=== PATIENT | male | born 1945 | race Caucasian/White ===

== ENCOUNTER 2024-04-19 10:56 | Inpatient (IN) ==
--- NOTE | 2024-04-19 11:33 | Emergency Department Note ---
Impression & Plan Chest pain, Dizziness ED Provider Note Provider: Miguelangel Martines MD DATE OF SERVICE: 04/19/2024 CHIEF COMPLAINT: Exertional chest pain and dizziness HISTORY OF PRESENT ILLNESS: Patient is a 79-year-old gentleman history of CKD, arthritis, and prostate issues presenting here today with his daughter. Visiting and came out to help with some construction/renovation work they are doing and got here approximately 5 days ago from [facility]. States about 2 months ago when there is having some stamina issues and occasional a bit of shoulder and chest discomfort. [facility] he had a nuclear stress test completed there that was abnormal but there were insurance issues with getting approval for cardiac catheterization so this has not been completed. [facility] has had ongoing issues with exertional chest discomfort and discomfort in his shoulders. States he gets very winded and short of breath easily. Little bit lightheaded at times but no fainting or trauma. No significant focal numbness or weakness or speech issues. Did travel and is a bit of swelling and varicose veins to his legs and a bit of a small lump in the upper inner right lower leg just below the knee. No chest pain now but again it is more exertional and dizziness is mainly when he stands up and moves around. Is unable complete significant help with the renovations and daughter finally convinced him to come here for evaluation today. Does not have a local doctor. Takes a baby aspirin daily. Is finishing a several week course of doxycycline for an eye infection by his report. No significant cardiac history otherwise related. Flew here from [facility]. Denies URI symptoms or cough or fever. Has had some blood pressure medicine changes recently. PAST MEDICAL HISTORY: As noted above MEDICATIONS: Reviewed home medications SOCIAL HISTORY: Very distant former smoker, PHYSICAL EXAM: GENERAL: alert and oriented in no acute distress on stretcher, slightly hard of hearing Head: normocephalic and atraumatic EYES: No injection, discharge or icterus. EOMI. NECK: Trachea midline. ENT: Mucous membranes pink and moist. LUNGS: Airway patent. No retractions. Breath sounds clear with good air entry bilaterally. HEART: Regular rate and rhythm. No chest wall tenderness ABDOMEN: Soft and non-tender, without guarding or rebound. SKIN: Acyanotic, warm, dry, without rashes EXTREMITIES: Without obvious deformity with significant bilateral varicose veins and 1+ bilateral swelling. A few scattered abrasions across the legs without significant erythema. Small about centimeter lump in the medial proximal right upper lower legnot significantly fluctuant NEUROLOGICAL: No focal deficits moving all extremities. No aphasia. No facial droop or slurred speech. Ambulatory. EK bpm sinus bradycardia. No PVC or PAC. No acute ST segment elevation or depression with QTc 427. CONTINUOUS CARDIAC MONITORING: was ordered and showed a heart rate of 40s to 50s bpm in sinus bradycardia Patient's laboratory studies and imaging reviewed. Differential includes Cardiac ischemia, aortic dissection, pulmonary embolism, pneumothorax, pneumonia, pericarditis, myocarditis, esophageal rupture, GERD, cholecystitis, pancreatitis, musculoskeletal, as well as other pathologies. IMPRESSION/MEDICAL DECISION MAKING: Obvious concerns given what sounds like exertional symptoms and chest and shoulder discomfort with a recent abnormal stress test this could be cardiac in nature. No active pain now. EKG and troponin was completed. Ultrasound lower legs exclude DVT given some swelling and varicosities here as well as his travel history was completed. Basic labs were sent. Will complete a CT of the head but lower suspicion this represents acute intracranial bleed or CVA as it seems exertional rather than consistent. Not really expanding significant infectious symptoms and afebrile. Will complete respiratory viral panel but lower suspicion for sepsis or meningitis at this time. Blood work here today without significant anemia. Slight leukopenia 4.7. Normal platelet count. CT of the head reassuring per radiology without findings of mass or bleed or obvious CT infarct. Blood work here shows CKD creatinine 2.4 without other severe electrolyte abnormality. No evidence of hepatitis or thyroid dysfunction. Troponin returns normal today. Negative respiratory viral panel. Chest x-ray without findings of pneumonia pneumothorax or significant pulmonary edema/effusion. Cardiomegaly is noted by radiology report. Ultrasound of the lower extremity shows Did receive a full dose of aspirin here. Discussed with the patient and daughter given the reports of his dyspnea on exertion and exertional chest discomfort with abnormal stress test reported do recommend that we bring the patient in for further cardiac evaluation. Hospitalist team was contacted. Discussed with cardiology. His renal dysfunction is made cardiac catheterization questionable but given his significant symptoms will be evaluated by the hospitalist team and import/export specialist for further care. No active chest pain at this time. DIAGNOSIS: Exertional dizziness and chest pain DISPOSITION: Hospitalist will evaluate Patient was agreeable with this plan. Past Med/Surg History Problem List (Updated 04/19/24 @ 15:57 by Miguelangel Martines M.D.) Acute kidney injury superimposed on CKD Hypotension Chest pain (Acute) Bradycardia Dizziness (Acute) Medical History (Updated 04/19/24 @ 15:57 by Miguelangel Martines M.D.) Rheumatoid arthritis Hyperlipidemia HTN (hypertension) CKD (chronic kidney disease) Social History Smoking Status: Former smoker Feels Safe at Home: Yes Allergies Allergies Allergy/AdvReac Type Severity Reaction Status Date / Time No Known Allergies Allergy Unverified 04/19/24 12:54 Home Meds Home Medications Medication Instructions Recorded Confirmed aspirin 81 mg tablet 81 mg PO HS 04/19/24 04/19/24 doxycycline hyclate 100 mg tablet 100 mg PO HS 04/19/24 04/19/24 duloxetine 30 mg capsule,delayed 90 mg PO DAILY 04/19/24 04/19/24 release finasteride 5 mg tablet 5 mg PO DAILY 04/19/24 04/19/24 folic acid 1 mg tablet 1 mg PO DAILY 04/19/24 04/19/24 losartan 50 mg tablet 50 mg PO HS 04/19/24 04/19/24 methotrexate sodium 2.5 mg tablet 15 mg PO WK 04/19/24 04/19/24 metoprolol succinate 25 mg 25 mg PO HS 04/19/24 04/19/24 tablet,extended release 24 hr rosuvastatin 5 mg tablet 5 mg PO DAILY 04/19/24 04/19/24 tamsulosin 0.4 mg capsule 0.4 mg PO HS 04/19/24 04/19/24 Results & Data (ED) Vital Signs Vital Signs - 24 hr 04/19/24 10:57 04/19/24 10:59 04/19/24 11:42 Temperature 36.6 C Temperature Source Temporal Artery Scan Pulse Rate 59 L 50 L Pulse Rate [Apical] 48 L Pulse Rhythm Pulse Rhythm [Apical] Regular Pulse Strength [Apical] Normal Respiratory Rate 18 16 Respiratory Effort / Characteristics Non-Labored Spontaneous Non-Labored Respiratory Depth Normal Normal Respiratory Pattern Regular Blood Pressure 94/60 L Blood Pressure [Left Arm] 103/64 Blood Pressure Mean 71 Blood Pressure Mean [Left Arm] 77 Blood Pressure Position [Left Arm] Lying Pulse Oximetry 98 99 Oxygen Delivery Method Room Air Room Air Sepsis Recent Fever Within 48 Hours No Sepsis New/Unexplained Change in Mental Status No Sepsis Action Taken by Nursing No Action Required 04/19/24 11:46 04/19/24 12:57 04/19/24 14:00 Temperature Temperature Source Pulse Rate 56 L Pulse Rate [Apical] 48 L 49 L Pulse Rhythm Regular Pulse Rhythm [Apical] Regular Regular Pulse Strength [Apical] Normal Normal Respiratory Rate 18 18 18 Respiratory Effort / Characteristics Non-Labored Spontaneous Non-Labored Spontaneous Respiratory Depth Normal Normal Respiratory Pattern Regular Regular Blood Pressure Blood Pressure [Left Arm] 122/72 Blood Pressure Mean Blood Pressure Mean [Left Arm] 88 Blood Pressure Position [Left Arm] Pulse Oximetry 99 99 Oxygen Delivery Method Room Air Room Air Sepsis Recent Fever Within 48 Hours Sepsis New/Unexplained Change in Mental Status Sepsis Action Taken by Nursing Laboratory Data 04/19/24 11:56 04/19/24 11:56 Lab Results 04/19/24 Range/Units 11:56 WBC 4.78 L (4.8-10.8) K/ul RBC 4.41 L (4.70-6.10) M/uL Hgb 13.5 L (14.0-18.0) g/dl Hct 40.3 L (42.0-52.0) % MCV 91.4 (80.0-100.0) fL MCH 30.6 (25.0-34.0) pg MCHC 33.5 (32.0-36.0) g/dL RDW Std Deviation 47.2 H (36.4-46.3) fL RDW Coeff of Sepideh 14.1 (11.5-14.5) % Plt Count 170 (130-400) K/uL MPV 10.1 (9.4-12.4) fL Immature Gran % (Auto) 0.4 % Neut % (Auto) 69.4 % Lymph % (Auto) 19.2 % [place] % (Auto) 7.9 % Eos % (Auto) 2.3 % Baso % (Auto) 0.8 % Neut # (Auto) 3.31 (1.40-6.50) K/uL Lymph # (Auto) 0.92 L (1.20-3.40) K/uL Sanborn # (Auto) 0.38 (0.11-0.59) K/uL Eos # (Auto) 0.11 (0.00-0.50) K/uL Baso # (Auto) 0.04 (0.00-0.20) K/uL Immature Gran # (Auto) 0.02 (0.01-0.20) K/uL PT 10.8 (9.0-12.0) Seconds INR 1.0 (0.9-1.1) Sodium 139 (136-145) mmol/L Potassium 4.3 (3.5-5.1) mmol/L Chloride 110 H (98-107) mmol/L Carbon Dioxide 22 (21-32) mmol/L Anion Gap 7 (3-11) BUN 46 H (6-23) mg/dl Creatinine 2.42 H (0.6-1.4) mg/dl Est Cr Clr Drug Dosing 30.2 ml/min Est GFR ( Amer) 28.8 ml/min Est GFR (Non-Af Amer) 24.8 ml/min BUN/Creatinine Ratio 19.0 (10-20) Glucose 77 (70-99(Fasting)) mg/dl Calcium 9.5 (8.6-10.3) mg/dl Magnesium 2.3 (1.7-2.4) mg/dl Total Bilirubin 1.1 H (0.2-1.0) mg/dl AST 19 (13-39) U/L ALT 10 (7-52) U/L Alkaline Phosphatase 61 (34-104) U/L Troponin I High Sens 2.7 (0-20) pg/ml Total Protein 6.7 (6.0-8.3) gm/dl Albumin 4.3 (3.4-5.0) gm/dl Globulin 2.4 L (2.5-4.0) gm/dl Albumin/Globulin Ratio 1.8 (0.9-2) TSH 2.053 (0.300-4.500) uIu/ml Administered Medications Lactated Ringer's (Lr) 1,000 mls @ 100 mls/hr IV .Q10H MAXWELL Stop: 04/20/24 00:44 Last Admin: 04/19/24 14:46 Dose: 100 mls/hr Documented By: TRISTIN Discontinued Medications Aspirin (Aspirin 81 Mg Chew) 324 mg PO NOW STA Stop: 04/19/24 11:28 Last Admin: 04/19/24 11:48 Dose: 324 mg Documented By: TRISTIN Imaging Data Radiologist's Impression: Chest X-Ray 04/19/24 11:27 SINGLE VIEW CHEST CLINICAL HISTORY: Atypical chest pain. FINDINGS: 2 AP, portable, upright chest radiographs are obtained. No prior studies are available for comparison at the time of dictation. The heart is enlarged noting atherosclerotic calcification of the thoracic aorta. The pulmonary vasculature is noncongested. There is bibasilar scarring/atelectasis. No airspace consolidation or large pleural effusion is identified. No pneumothorax is seen. The skeletal structures are osteopenic. The bony thorax is grossly intact. IMPRESSION: Cardiomegaly with no acute cardiopulmonary abnormality identified. ACT 112: Negative or not required by law. Electronically signed by: Momo Sherman M.D. 04/19/2024 12:02 PM Venous Doppler Study 04/19/24 11:27 ULTRASOUND BILATERAL LOWER EXTREMITY VENOUS CLINICAL HISTORY: Lower extremity edema. Recent travel. COMPARISON STUDY: No prior TECHNIQUE: Real-time, grayscale, and color Doppler sonography of the deep veins of the right and left lower extremity was performed from the inguinal crease to the calf. Compression and augmentation were utilized. FINDINGS: There is no sonographic evidence of deep venous thrombosis identified in the right or left lower extremity. The common femoral, superficial femoral, and popliteal veins are patent and normally compressible bilaterally. The greater saphenous vein and the profunda femoris vein at the junction with the common femoral vein are clear in both legs. The visualized calf veins are patent bilaterally. IMPRESSION: There is no sonographic evidence of deep venous thrombosis identified in the right or left lower extremity. ACT 112: Negative or not required by law. Electronically signed by: Momo Sherman M.D. 04/19/2024 1:[address] 04/19/24 11:[address] DOSE: 703.85 mGy.cm HISTORY: dizziness TECHNIQUE: Multiaxial CT images of the head were performed without the use of intravenous contrast. Automated exposure control was utilized for this study. A dose lowering technique was utilized adhering to the principles of ALARA. Comparison: None. Findings: Mild mucosal thickening within the right maxillary sinus. The remaining paranasal sinuses and mastoid air cells are clear. The calvarium and skull base are intact. There is no mass, hematoma, midline shift, acute infarct. White matter hypodensity is nonspecific but suggestive of microvascular ischemic change. The ventricles and sulci demonstrate mild age-related involutional changes. Impression: No acute intracranial abnormality. Atrophy and microvascular ischemic changes. ACT 112: Negative or not required by law. Electronically signed by: Jefferson Rogers M.D. 04/19/2024 12:26 PM Discharge Plan Visit Data Chief Complaint: Vertigo Stated Complaint: VERTIGO, SOB, UPPER BODY PAIN, FATIGUE ED Provider: Miguelangel Martines Discharge Problem: Chest pain, Dizziness Patient Disposition: Being Evaluated by Hospitalist
[2024-04-19] MEDS: ASPIRIN 81 MG CHEW PO STA (11:48)
--- NOTE | 2024-04-19 12:03 | XRay Report ---
SINGLE VIEW CHEST CLINICAL HISTORY: Atypical chest pain. FINDINGS: 2 AP, portable, upright chest radiographs are obtained. No prior studies are available for comparison at the time of dictation. The heart is enlarged noting atherosclerotic calcification of th e thoracic aorta. The pulmonary vasculature is noncongested. There is bibasilar scarring/atelectasis. No airspace consolidation or large pleural effusion is identified. No pneumothorax is seen. The skel etal structures are osteopenic. The bony thorax is grossly intact. IMPRESSION: Cardiomegaly with no acute cardiopulmonary abnormality identified. ACT 112: Negative or not required by law. Electronically signed by: Momo Sherman M.D. 04/19/2024 12:02 PM
--- NOTE | 2024-04-19 12:27 | CT Scan Report ---
HEAD CT NONCONTRAST CT DOSE: 703.85 mGy.cm HISTORY: dizziness TECHNIQUE: Multiaxial CT images of the head were performed without the use of intravenous contrast. A utomated exposure control was utilized for this study. A dose lowering technique was utilized adheri ng to the principles of ALARA. Comparison: None. Findings: Mild mucosal thickening within the right maxillary sinus. The remaining paranasal sinuses a nd mastoid air cells are clear. The calvarium and skull base are intact. There is no mass, hematoma, midline shift, acute infarct. White matter hypodensity is nonspecific but suggestive of microvascular ischemic change. The ventricles and sulci demonstrate mild age-related involutional changes. Impression: No acute intracranial abnormality. Atrophy and microvascular ischemic changes. ACT 112: Negative or not required by law. Electronically signed by: Jefferson Rogers M.D. 04/19/2024 12:26 PM
[2024-04-19 12:29] LABS: Basophils # (auto) 0.04 K/uL (0.00-0.20); Basophils % (auto) 0.8 %; Eosinophils # (auto) 0.11 K/uL (0.00-0.50); Eosinophils % (auto) 2.3 %; Hematocrit (blood only) 40.3 % (42.0-52.0); Hemoglobin 13.5 g/dl (14.0-18.0); Immature Granulocytes # (auto) 0.02 K/uL (0.01-0.20); Immature Granulocytes % (auto) 0.4 %; Lymphocytes # (auto) 0.92 K/uL (1.20-3.40); Lymphocytes % (auto) 19.2 %; Mean Corpuscular Hemoglobin 30.6 pg (25.0-34.0); Mean Corpuscular Hgb Conc 33.5 g/dL (32.0-36.0); Mean Corpuscular Volume 91.4 fL (80.0-100.0); Mean Platelet Volume 10.1 fL (9.4-12.4); Monocytes # (auto) 0.38 K/uL (0.11-0.59); Monocytes % (auto) 7.9 %; Neutrophils # (auto) 3.31 K/uL (1.40-6.50); Neutrophils % (auto) 69.4 %; Platelet Count 170 K/uL (130-400); RDW Coefficient of Variation 14.1 % (11.5-14.5); RDW Standard Deviation 47.2 fL (36.4-46.3); Red Blood Count 4.41 M/uL (4.70-6.10); White Blood Count 4.78 K/ul (4.8-10.8)
[2024-04-19 12:40] LABS: Albumin Globulin Ratio 1.8 (0.9-2); Albumin Level 4.3 gm/dl (3.4-5.0); Bilirubin,Total 1.1 mg/dl (0.2-1.0); Calcium 9.5 mg/dl (8.6-10.3); Creatinine Clr Calc Pharmacy 30.2 ml/min; Est GFR (African American) 28.8 ml/min; Est GFR (Non-African American) 24.8 ml/min; Globulin 2.4 gm/dl (2.5-4.0); Magnesium 2.3 mg/dl (1.7-2.4); Potassium 4.3 mmol/L (3.5-5.1); Total Protein 6.7 gm/dl (6.0-8.3)
[2024-04-19 12:46] LABS: Adenovirus PCR Not Detected (NotDetected); Bordetella parapertussis PCR Not Detected (NotDetected); Bordetella pertussis PCR Not Detected (NotDetected); Chlamydia pneumoniae PCR Not Detected (NotDetected); Coronavirus 229E PCR Not Detected (NotDetected); Coronavirus CoV-2 (COVID19)PCR Not Detected (NotDetected); Coronavirus HKU1 PCR Not Detected (NotDetected); Coronavirus NL63 PCR Not Detected (NotDetected); Coronavirus OC43PCR Not Detected (NotDetected); Human Metapneumovirus PCR Not Detected (NotDetected); Influenza A PCR Not Detected (NotDetected); Influenza B PCR Not Detected (NotDetected); Mycoplasma pneumoniae PCR Not Detected (NotDetected); Parainfluenza Virus 1 PCR Not Detected (NotDetected); Parainfluenza Virus 2 PCR Not Detected (NotDetected); Parainfluenza Virus 3 PCR Not Detected (NotDetected); Parainfluenza Virus 4 PCR Not Detected (NotDetected); Respiratory Syncytial VirusPCR Not Detected (NotDetected); Rhinovirus/Enterovirus PCR Not Detected (NotDetected)
[2024-04-19 12:48] LABS: Troponin I High Sensitivity 2.7 pg/ml (0-20)
[2024-04-19 12:54] LABS: Prothrombin Time 10.8 Seconds (9.0-12.0)
--- NOTE | 2024-04-19 12:54 | Electrocardiogram Report ---
Test Reason : Blood Pressure : / mmHG Vent. Rate : 051 BPM Atrial Rate : 051 BPM P-R Int : 184 ms QRS Dur : 096 ms QT Int : 464 ms P-R-T Axes : 010 -03 034 degrees QTc Int : 427 ms Sinus bradycardia Otherwise normal ECG No previous ECGs available Confirmed by Peter Ansari ([id number]) on 04/19/2024 12:53:34 PM Referred By: Confirmed By:Jaspal Ansari
[2024-04-19 12:55] LABS: Thyroid Stimulating Hormone 2.053 uIu/ml (0.300-4.500)
--- NOTE | 2024-04-19 13:31 | Ultrasound Report ---
ULTRASOUND BILATERAL LOWER EXTREMITY VENOUS CLINICAL HISTORY: Lower extremity edema. Recent travel. COMPARISON STUDY: No prior TECHNIQUE: Real-time, grayscale, and color Doppler sonography of the deep veins of the right and left lower extremity was performed from the inguinal crease to the calf. Compression and augmentation wer e utilized. FINDINGS: There is no sonographic evidence of deep venous thrombosis identified in the right or left lower extremity. The common femoral, superficial femoral, and popliteal veins are patent and normally compressible bilaterally. The greater saphenous vein and the profunda femoris vein at the junction w ith the common femoral vein are clear in both legs. The visualized calf veins are patent bilaterally. IMPRESSION: There is no sonographic evidence of deep venous thrombosis identified in the right or lef t lower extremity. ACT 112: Negative or not required by law. Electronically signed by: Momo Sherman M.D. 04/19/2024 1:30 PM
--- NOTE | 2024-04-19 13:50 | History & Physical Report ---
Date of Service April 19, 2024 Assessment & Plan (1) Chest pain: Plan: Admit to med/tele on pulse oximetry Currently asymptomatic with heart rate in the 40s but otherwise stable at rest Presented to the ED today due to ongoing dyspnea on exertion/left-sided chest pain, lightheadedness/dizziness, neck pain, Patient is from [facility] and had an abnormal stress test approximately 2 months ago, is supposed to undergo cardiac catheterization but this has not yet been scheduled Patient noted to be bradycardic on arrival with heart rate in the 40s to 50s, initially was hypotensive with BP of 94/60 Initial high-sensitivity troponin is within normal limits, no acute ST segment or T wave changes on EKG Was given full dose aspirin prior to admission Patient will be admitted and seen by cardiology as he has ongoing symptoms and recent abnormal stress test are concerning Unfortunately it appears he has an ELY, will try improve kidney function as he would be high risk for further renal failure with contrast Will need to hold home metoprolol and losartan due to bradycardia, ELY, and hypotension Continue Crestor and daily baby aspirin Repeat 2-hour high-sensitivity troponin and obtain TTE Cardiology has been consulted SQ heparin for DVT prophylaxis Heart healthy diet AM CBC, CMP, mag, PT/INR (2) Dizziness: Plan: Patient has been experiencing dizziness with positional changes or exertion over the past week Suspect this is multifactorial including bradycardia, hypotension, and likely dehydration with his ELY as he appears dry on exam No acute EKG changes, electrolytes are stable, continue to monitor on telemetry Holding home metoprolol and losartan for now Will follow TTE ordered on admission Cardiology consult placed Fall precautions (3) Bradycardia: Plan: Patient has been bradycardic with heart rate in the 40s to 50s since arrival Denies a previous history of bradycardia Is normally on 25 mg metoprolol succinate nightly, confirms he did have his dose last night New bradycardia is concerning for possible CA with his ongoing symptoms Will hold metoprolol for now Rest of care per chest pain plan (4) Acute kidney injury superimposed on CKD: Plan: Creatinine is 2.42, review of patient's previous records provided by his phone nicho shows previous creatinine of 1.4 as of October of this year Suspect his ELY is due to poor perfusion from dehydration and possible worsening ejection fraction with new bradycardia and ongoing cardiac symptoms Patient does appear dry on exam, electrolytes are stable Will give 1 L LR at 100 mL an hour x 1 bag for now to avoid volume overload Avoid nephrotoxic agents Follow TTE ordered on admission Follow daily renal function electrolytes Intake output every shift (5) Hypotension: Plan: Noted to be hypotensive on arrival at 94/60 Suspect this is multifactorial including dehydration with ELY, ongoing losartan use, ongoing metoprolol use despite bradycardia BP currently stable on admission at 122/72 Will give 1 L LR x 1 bag on admission for hypotension and ELY Continue to hold metoprolol and losartan for now Rest of care per chest pain plan (6) Hyperlipidemia: Plan: Continue Crestor (7) Rheumatoid arthritis: Plan: Is on weekly methotrexate every Wednesday Holding methotrexate for now, will need to monitor kidney function and renally dose if needed Plan The patient was discussed with Dr. Zee at the time of the admission History of Present Illness Chief Complaint: Dizziness, chest pain, RANKIN, brain for Primary Care Provider: NICHOLE ROSARIO JERRI Heaton is a 79-year-old male who is currently visiting family in [place] (lives in [facility]), with a past medical history significant for hyperlipidemia, hypertension, CKD, rheumatoid arthritis (On weekly methotrexate), Heart failure with preserved ejection fraction, and BPH who presented to the [facility] ED on 04/19/2024 due to progressive generalized weakness, brain fog, dyspnea on exertion, chest pain, and dizziness. On arrival to the ED he was noted to be bradycardic with heart rate in the 40s to 50s, initial BP of 103/64, and otherwise stable. Labs were significant for creatinine of 2.42 (unsure baseline), BUN of 46, high-sensitivity troponin of 2.7, and full respiratory Bio[employer] negative. CT of the head and brain without contrast, bilateral lower extremity venous Doppler, and chest x-ray were read as negative for acute findings. EKG shows sinus bradycardia without ST segment or T wave changes. The patient reported to the ED staff that he recently had an abnormal stress test and is supposed to undergo cardiac catheterization. This has not yet been completed as there have been delays due to insurance issues. Prior to admission the patient was given 324 mg aspirin. Patient was sitting in bed in no acute distress at the time of exam. He states that he had an abnormal stress test approximately 2 months ago as he has been having ongoing dyspnea on exertion, sharp left-sided chest pain with exer tion, lightheadedness/dizziness with positional changes or exertion, and bilateral neck pain with exertion. He has not had a cardiac catheterization due to insurance conflicts. He arrived in [place] on 04/14/2024 to help his daughter with home innervations. Since arriving he has had progression of his symptoms to the point where he is unable to walk up the steps without significant dyspnea on exertion, chest pain, and dizziness. Denies recent tobacco use and does not drink alcohol consistently. Denies a previous history of cardiac procedures. He is currently on a taper of doxycycline for bilateral bacterial eye infection. He was able to provide me with previous information from his medical record Showing that his previous creatinine in October of this year was 1.4. He was able provide the results of his last stress test which showed wall motion abnormalities of the inferior wall and left ventricular ejection fraction of 58%. He denies recurrence of symptoms since arrival to the ED. I explained that we will need him to be evaluated by cardiology and see if we can improve his renal function with light IV fluids as IV contrast with cardiac sedation today would be high risk for worsening renal function. We discussed CODE STATUS, he clearly explained that in the event of cardiac arrest he would not want CPR. He would be okay with cardiac defibrillation in the event of arrhythmia and would be okay with a trial of intubation in the event of respiratory failure. His is his primary decision-maker if he cannot make decisions himself. The patient added that he has been having ongoing issues with difficulty swallowing solid foods, he states has been occurring for multiple years. He has not been formally evaluated for this. Home Supervisor Pipe Finishing: Dayanna El Home Restrike Hammer Operator: Dr. Mouna Holder, [place], [place] Please refer to Dr. Zee's attestation for any changes to the treatment plan Allergies Allergy/AdvReac Type Severity Reaction Status Date / Time No Known Allergies Allergy Unverified 04/19/24 12:54 Home Medications Medication Instructions Recorded Confirmed Type aspirin 81 mg tablet 81 mg PO HS 04/19/24 04/19/24 History doxycycline hyclate 100 mg tablet 100 mg PO HS 04/19/24 04/19/24 History duloxetine 30 mg capsule,delayed 90 mg PO DAILY 04/19/24 04/19/24 History release finasteride 5 mg tablet 5 mg PO DAILY 04/19/24 04/19/24 History folic acid 1 mg tablet 1 mg PO DAILY 04/19/24 04/19/24 History methotrexate sodium 2.5 mg tablet 15 mg PO WK 04/19/24 04/19/24 History rosuvastatin 5 mg tablet 5 mg PO DAILY 04/19/24 04/19/24 History tamsulosin 0.4 mg capsule 0.4 mg PO HS 04/19/24 04/19/24 History Past Med/Surg History Problem List (Updated 04/19/24 @ 17:49 by Peter Ansari MD) Psoriatic arthritis Dyspnea on exertion Acute kidney injury superimposed on CKD Hypotension Chest pain (Acute) Bradycardia Dizziness (Acute) Medical History (Updated 04/19/24 @ 17:49 by Peter Ansari MD) Rheumatoid arthritis Hyperlipidemia HTN (hypertension) CKD (chronic kidney disease) Social History Smoking Status: Never smoker Do You Dip or Chew Tobacco: No; Hx Alcohol Use: Yes Hx Substance Use: No Communication Ability: Effective Psychometric Examiner Required: No Beliefs That Will Affect Care: None Current Living Situation: Spouse Feels Safe at Home: No Is there a partner from a previous relationship who is making you feel unsafe now?: No Assistive Devices: Glasses Physical Exam Physical Exam: Physical Exam: General: In no acute distress, stated age, well-nourished, non-toxic appearing HEENT: Normocephalic, atraumatic, no scleral icterus, pupils around round, symmetrical, and reactive to light, moist mucus membranes, trachea midline, no thyromegaly Chest/Pulm: No respiratory distress, symmetrical chest expansion, clear breath sounds throughout Cardiac: bradycardic rate, regular rhythm, no murmurs noted Abdomen: Negative for ascites and bruising, normoactive bowel sounds, soft, non-tender to palpation throughout Musculoskeletal: Symmetrical and without signs of acute trauma, upper and lower extremities with full ROM, no atrophy, spasticity, or flaccidity Extremities: Radial, dorsalis pedis, and posterior tibial pulses are intact and symmetrical, no edema noted in the BL LE's Skin: Skin abrasions on the BL shins from recent home renovation work, no signs of bleeding or infection Neuro: Alert and oriented to person, place, month, year, and president, no focal defects, no tremors noted Psych: No acute distress, calm and cooperative during the exam Results & Data Results & Data Vital Signs (Past 12 Hours) Vital Signs Temp Pulse Pulse Resp BP BP Pulse Ox 04/19/24 12:57 48 L 18 04/19/24 11:46 56 L 18 99 04/19/24 11:42 50 L 04/19/24 10:59 36.6 C 59 L 16 94/60 L 99 04/19/24 10:57 48 L 18 103/64 98 O2 Del Method 04/19/24 12:57 04/19/24 11:46 Room Air 04/19/24 11:42 04/19/24 10:59 Room Air 04/19/24 10:57 Room Air Laboratory Results Abnormal lab results 04/19/24 Range/Units 11:56 WBC 4.78 L (4.8-10.8) K/ul RBC 4.41 L (4.70-6.10) M/uL Hgb 13.5 L (14.0-18.0) g/dl Hct 40.3 L (42.0-52.0) % RDW Std Deviation 47.2 H (36.4-46.3) fL Lymph # (Auto) 0.92 L (1.20-3.40) K/uL Chloride 110 H (98-107) mmol/L BUN 46 H (6-23) mg/dl Creatinine 2.42 H (0.6-1.4) mg/dl Total Bilirubin 1.1 H (0.2-1.0) mg/dl Globulin 2.4 L (2.5-4.0) gm/dl Diagnostic Findings Abnormal lab results 04/19/24 Range/Units 11:56 WBC 4.78 L (4.8-10.8) K/ul RBC 4.41 L (4.70-6.10) M/uL Hgb 13.5 L (14.0-18.0) g/dl Hct 40.3 L (42.0-52.0) % RDW Std Deviation 47.2 H (36.4-46.3) fL Lymph # (Auto) 0.92 L (1.20-3.40) K/uL Chloride 110 H (98-107) mmol/L BUN 46 H (6-23) mg/dl Creatinine 2.42 H (0.6-1.4) mg/dl Total Bilirubin 1.1 H (0.2-1.0) mg/dl Globulin 2.4 L (2.5-4.0) gm/dl ECG Additional Comments: Sinus bradycardia Otherwise normal ECG No previous ECGs available Confirmed by Peter Ansari ([id number]) on 04/19/2024 12:53:34 PM Code Status & VTE Plan Code Status Conditional; see HPI VTE Prophylaxis Plan VTE Prophylaxis will be ordered: Yes Supervising Physician Co-Signing Physician Notes I personally saw and examined the patient. I verified all mac points and agree with Anthony Gordon PA-C with the following exceptions and/or additions: 79 year old male presents to the ER due to progressive generalized weakness, brain fog, dyspnea on exertion, chest pain, and dizziness. Noted to be bradycardic in the ER with Cr 2.42 (baseline 1.4). O/E HS decreased rate, regular rhythm, no murmurs, Chest CTAB, Abdo SNT A/P Chest pain - with abnormal stress test, consult cardiology for consideration of cardiac catheterization Dizziness - suspect due to dehydration, IV fluids and reassess ELY - appears dehydrated, IV fluids overnight and repeat in AM PG Care Time/CCT Total # of Minutes Spent Total Time Spent with Patient: Total time spent is greater than 50% in coordination of care (as documented) at patient's floor/unit and/or counseling patient: [place] [address] INT INP/OBS CARE 3/75MIN Patient Type New Medical Decision Making High Complexity Diagnoses Chest pain R07.9 Dizziness R42 Bradycardia R00.1 Acute kidney injury superimposed on CKD N17.9; N18.9 Hypotension I95.9 Hyperlipidemia E78.5 Rheumatoid arthritis M06.9
[2024-04-19] MEDS: LACTATED RINGER'S 1,000 ML IV SCH (14:46)
--- NOTE | 2024-04-19 16:23 | XCELERA ---
[id number]
--- NOTE | 2024-04-19 17:52 | Cardiology Consultation ---
Date of Consultation April 19, 2024 Assessment & Plan (1) Dyspnea on exertion: (2) Dizziness: (3) Bradycardia: (4) Psoriatic arthritis: Plan 1. Dyspnea on exertion: His symptoms are somewhat atypical for coronary ischemia. He did not describe chest pain associated with these episodes. I think it would be unusual for someone in his demographic did not have chest pain and significant coronary disease. It is possible this is related to elevated left ventricular pressures. Overall LV function was not vigorous but not markedly reduced either. Also possibly a primary pulmonary process. Given his abnormal perfusion study in the concern regarding coronary disease would seem reasonable to perform cardiac catheterization performed with measurement of cardiac filling pressures and pulmonary pressures as well. My hope is that his renal function improves with hydration and the test can be performed safely. Will re-evaluate in the morning. 2. Aortic regurgitation: Moderate. The aortic valve appeared sclerotic. I do not think the regurgitation is severe enough to cause symptoms. 3. Dizziness: Curiously, this is related to his dyspnea on exertion. I do not believe there has been any associated arrhythmia. Perhaps some element of hypoxia. 4. Psoriatic arthritis 5. Jaw claudication 6. Bradycardia: He has a sinus bradycardia. It is possible that he has an element of chronotropic incompetence. However, he appears to be symptomatic with even light exertion and he did undergo exercise testing previously. This is not appear to have been pursued subsequent to that testing. We can monitor him on telemetry and watch his heart rate as he is active. History of Present Illness Reason for Consultation: Exertional dyspnea Requesting Physician: Saadia Attending Physician: Lenny Zee MD History of Present Illness The patient is a 79-year-old gentleman without a known history of cardiac disease who is visiting from [facility]. It seems that for several weeks he has been experiencing exertional symptoms of shortness of breath and dizziness. The symptoms appear to have become progressive and now can occur with fairly minimal exertion. He is in the process of assessing his daughter with remodeling a home. He was doing some light work yesterday which resulted in these symptoms. He often times has to bend over and rest for brief period before he can resume activity. However, the symptoms often returned quite quickly. He did not endorse symptoms of associated chest pain. He did state that he has occasional chest pains but these are fairly random and not exertional. While he becomes quite dizzy and lightheaded he has not suffered syncope. He has not been aware of palpitations. Based on the symptoms he did undergo a cardiac evaluation in [facility]. This seemed to have involved an echocardiogram and an exercise perfusion study. The echocardiogram reportedly demonstrated normal LV function but aortic regurgitation. The exercise perfusion study was not normal and was suggestive of both infarct and ischemia. He only had some mild symptoms with exercise. He states that the test was performed some time ago and his symptoms have progressed since that was performed. He was advised to undergo coronary angiography, but the procedure was denied by his insurance company. He denies orthopnea or paroxysmal nocturnal dyspnea. He states that when working outside in the heat he often has some lower extremity edema, but this is not been as noticeable recently. Allergies Allergy/AdvReac Type Severity Reaction Status Date / Time No Known Allergies Allergy Unverified 04/19/24 12:54 Home Medications Medication Instructions Recorded Confirmed Type aspirin 81 mg tablet 81 mg PO HS 04/19/24 04/19/24 History doxycycline hyclate 100 mg tablet 100 mg PO HS 04/19/24 04/19/24 History duloxetine 30 mg capsule,delayed 90 mg PO DAILY 04/19/24 04/19/24 History release finasteride 5 mg tablet 5 mg PO DAILY 04/19/24 04/19/24 History folic acid 1 mg tablet 1 mg PO DAILY 04/19/24 04/19/24 History losartan 50 mg tablet 50 mg PO HS 04/19/24 04/19/24 History methotrexate sodium 2.5 mg tablet 15 mg PO WK 04/19/24 04/19/24 History metoprolol succinate 25 mg 25 mg PO HS 04/19/24 04/19/24 History tablet,extended release 24 hr rosuvastatin 5 mg tablet 5 mg PO DAILY 04/19/24 04/19/24 History tamsulosin 0.4 mg capsule 0.4 mg PO HS 04/19/24 04/19/24 History Patient History Medical History (Updated 04/19/24 @ 17:49 by Peter Ansari MD) Rheumatoid arthritis Hyperlipidemia HTN (hypertension) CKD (chronic kidney disease) Social History Smoking Status: Never smoker Do You Dip or Chew Tobacco: No; Hx Alcohol Use: Yes Hx Substance Use: No Communication Ability: Effective Certified Dialysis Technician Required: No Beliefs That Will Affect Care: None Current Living Situation: Spouse Other Information That Helps Us Care for You: No Feels Safe at Home: No Is there a partner from a previous relationship who is making you feel unsafe now?: No Any Concerns about Your Family Situation: No W ould You Like to Speak to Someone About Your Situation: No Safety Concerns: Feels Safe At This Time Assistive Devices: Glasses Review of Systems Review of Systems: Some joint pains on occasion. Some discomfort in the throat on occasion and jaw claudication with eating Physical Exam Physical Exam: The patient is alert and oriented. Mood and affect appeared normal. He answered all questions appropriately. HEENT: Pupils are equal and reactive to light and accommodation. Extraocular movements are intact. The sclerae are anicteric. Neuro: Cranial nerves intact Lungs: Clear to auscultation bilaterally. He has good air movement without use of accessory muscles. No rales wheezes or rhonchi. Cardiac: Heart demonstrates a regular rate and rhythm. Normal S1 and S2. Systolic ejection murmur Pulses: The patient has palpable radial pulses bilaterally that are equal in intensity Extremities: There was no evidence of hypoperfusion. There is no cyanosis or clubbing. There is no edema. Skin: I did not appreciate any rashes on examination today. Some abrasions on both anterior tibial surfaces Results & Data Vital Signs (Past 12 Hours) Vital Signs Temp Pulse Pulse Resp BP BP Pulse Ox 04/19/24 17:20 49 L 04/19/24 16:54 04/19/24 16:54 36.3 C L 56 L 16 110/66 98 04/19/24 16:17 36.3 C L 56 L 18 110/66 98 04/19/24 16:00 56 L 18 96 04/19/24 14:00 49 L 18 122/72 99 04/19/24 12:57 48 L 18 04/19/24 11:46 56 L 18 99 04/19/24 11:42 50 L 04/19/24 10:59 36.6 C 59 L 16 94/60 L 99 04/19/24 10:57 48 L 18 103/64 98 Pulse Ox O2 Del Method O2 Del Method 04/19/24 17:20 04/19/24 16:54 96 Room Air 04/19/24 16:54 Room Air 04/19/24 16:17 Room Air 04/19/24 16:00 Room Air 04/19/24 14:00 Room Air 04/19/24 12:57 04/19/24 11:46 Room Air 04/19/24 11:42 04/19/24 10:59 Room Air 04/19/24 10:57 Room Air Laboratory Results Abnormal Lab Results 04/19/24 04/19/24 04/19/24 11:56 15:06 Unknown WBC 4.78 L RBC 4.41 L Hgb 13.5 L Hct 40.3 L MCV 91.4 MCH 30.6 MCHC 33.5 RDW Std Deviation 47.2 H RDW Coeff of Sepideh 14.1 Plt Count 170 MPV 10.1 Immature Gran % (Auto) 0.4 Neut % (Auto) 69.4 Lymph % (Auto) 19.2 [place] % (Auto) 7.9 Eos % (Auto) 2.3 Baso % (Auto) 0.8 Neut # (Auto) 3.31 Lymph # (Auto) 0.92 L [place] # (Auto) 0.38 Eos # (Auto) 0.11 Baso # (Auto) 0.04 Immature Gran # (Auto) 0.02 PT 10.8 INR 1.0 Sodium 139 Potassium 4.3 Chloride 110 H Carbon Dioxide 22 Anion Gap 7 BUN 46 H Creatinine 2.42 H Est Cr Clr Drug Dosing 30.2 Est GFR ( Amer) 28.8 Est GFR (Non-Af Amer) 24.8 BUN/Creatinine Ratio 19.0 Glucose 77 Calcium 9.5 Magnesium 2.3 Total Bilirubin 1.1 H AST 19 ALT 10 Alkaline Phosphatase 61 Troponin I High Sens 2.7 2.7 B-Natriuretic Peptide 67 Total Protein 6.7 Albumin 4.3 Globulin 2.4 L Albumin/Globulin Ratio 1.8 TSH 2.053 Adenovirus (PCR) Not Detected B. pertussis DNA (PCR) Not Detected B.parapertussis DNA PCR Not Detected C. pneumoniae DNA (PCR) Not Detected Coronavirus OC43 (PCR) Not Detected Coronavirus HKU1 (PCR) Not Detected Coronavirus 229E (PCR) Not Detected SARS-CoV-2 (PCR) Not Detected Coronavirus NL63 (PCR) Not Detected Human Metapneumovir PCR Not Detected Influenza Type A (PCR) Not Detected Influenza Type B (PCR) Not Detected M. pneumoniae (PCR) Not Detected Parainfluenza 1 (PCR) Not Detected Parainfluenza 2 (PCR) Not Detected Parainfluenza 3 (PCR) Not Detected Parainfluenza 4 (PCR) Not Detected RSV (PCR) Not Detected Entero/Rhino (PCR) Not Detected Diagnostic Findings Head CT, chest x-ray And lower extremity duplex study were all normal. No intracranial abnormality, deep venous thrombosis in no acute cardiopulmonary findings. 04/19/2024: Low normal LV systolic function with ejection fraction around 50%. Mild left atrial dilation. Moderate aortic regurgitation. Borderline aortic root dilation. ECG Additional Comments: EKG demonstrated sinus bradycardia. PG Care Time/CCT Total # of Minutes Spent Total Time Spent with Patient: Total time spent is greater than 50% in coordination of care (as documented) at patient's floor/unit and/or counseling patient: Coding Level of Care Code 31996 INT INP/OBS CARE 3/75MIN Diagnoses Dyspnea on exertion R06.09 Dizziness R42 Bradycardia R00.1 Psoriatic arthritis L40.50
[2024-04-19] MEDS: DOXYCYCLINE HYCLATE 100 MG CAP PO SCH (19:52)
[2024-04-19] MEDS: TAMSULOSIN HCL 0.4 MG CAP PO SCH (19:52)
[2024-04-19] MEDS: HEPARIN SOD 5,000 UNIT/0.5 ML VIAL SQ SCH (19:53)
[2024-04-19] MEDS: ASPIRIN 81 MG ECTAB PO SCH (19:54)
[2024-04-19] MEDS ORDERED: NON-FORMULARY MEDICATION (Aspirin 81 mg Tablet) PO SCH (21:00)
[2024-04-19 21:52] LABS: Appearance Urine Cloudy (Clear); Bacteria Urine Automated None Seen (None Seen); Bilirubin Urine Negative (Negative); Blood Urine Negative (Negative); Cast Urine Automated 0-2 /lpf (0-2); Color Urine Yellow; Epithelial Cell Urine Auto 0-2 /hpf (0-2); Glucose Urine UA Negative (Negative); Ketones Urine Negative (Negative); Leukocyte Esterase Urine Negative (Negative); Nitrite Urine Negative (Negative); Protein Urine Negative (Negative); RBC Urine Automated 0-2 /hpf (0-2); Specific Gravity Urine 1.022 (1.000-1.030); Urobilinogen Urine Negative (Negative); WBC Urine Automated 0-5 /hpf (0-5); pH Urine 5.5 (4.5-7.5)
[2024-04-20 07:21] LABS: Basophils # (auto) 0.04 K/uL (0.00-0.20); Eosinophils # (auto) 0.13 K/uL (0.00-0.50); Eosinophils % (auto) 3.4 %; Hematocrit (blood only) 35.7 % (42.0-52.0); Hemoglobin 12.3 g/dl (14.0-18.0); Immature Granulocytes # (auto) 0.01 K/uL (0.01-0.20); Immature Granulocytes % (auto) 0.3 %; Lymphocytes # (auto) 0.96 K/uL (1.20-3.40); Lymphocytes % (auto) 25.1 %; Mean Corpuscular Hemoglobin 31.4 pg (25.0-34.0); Mean Corpuscular Hgb Conc 34.5 g/dL (32.0-36.0); Mean Corpuscular Volume 91.1 fL (80.0-100.0); Mean Platelet Volume 10.1 fL (9.4-12.4); Monocytes # (auto) 0.33 K/uL (0.11-0.59); Monocytes % (auto) 8.6 %; Neutrophils # (auto) 2.36 K/uL (1.40-6.50); Neutrophils % (auto) 61.6 %; Platelet Count 129 K/uL (130-400); RDW Coefficient of Variation 13.9 % (11.5-14.5); Red Blood Count 3.92 M/uL (4.70-6.10); White Blood Count 3.83 K/ul (4.8-10.8)
[2024-04-20 07:42] LABS: Alanine Aminotransferase 9 U/L (7-52); Albumin Globulin Ratio 1.9 (0.9-2); Albumin Level 3.7 gm/dl (3.4-5.0); Alkaline Phosphatase 53 U/L (34-104); Anion Gap 6 (3-11); Aspartate Aminotransferase 15 U/L (13-39); BUN Creatinine Ratio 20.4 (10-20); Bilirubin,Total 0.9 mg/dl (0.2-1.0); Blood Urea Nitrogen 37 mg/dl (6-23); C Reactive Protein < 0.50 mg/dl (0-0.5); Calcium 8.5 mg/dl (8.6-10.3); Carbon Dioxide 23 mmol/L (21-32); Chloride 111 mmol/L (98-107); Creatinine Clr Calc Pharmacy 40.6 ml/min; Est GFR (African American) 40.9 ml/min; Est GFR (Non-African American) 35.3 ml/min; Glucose 80 mg/dl (70-99(Fasting)); Potassium 4.4 mmol/L (3.5-5.1); Sodium 140 mmol/L (136-145); Total Protein 5.7 gm/dl (6.0-8.3)
[2024-04-20] MEDS: ROSUVASTATIN CALCIUM 5 MG TAB PO SCH (08:55)
[2024-04-20] MEDS: DULoxetine HCL 30 MG CAP PO SCH (08:55)
[2024-04-20] MEDS: FINASTERIDE 5 MG TAB PO SCH (08:55)
--- NOTE | 2024-04-20 22:44 | Hospitalist Progress Note ---
Date of Service April 20, 2024 Assessment & Plan (1) Chest pain: Plan: Admit to med/tele on pulse oximetry Currently asymptomatic with heart rate in the 40s but otherwise stable at rest Presented to the ED today due to ongoing dyspnea on exertion/left-sided chest pain, lightheadedness/dizziness, neck pain, Patient is from [facility] and had an abnormal stress test approximately 2 months ago, is supposed to undergo cardiac catheterization but this has not yet been scheduled Patient noted to be bradycardic on arrival with heart rate in the 40s to 50s, initially was hypotensive with BP of 94/60 Initial high-sensitivity troponin is within normal limits, no acute ST segment or T wave changes on EKG Was given full dose aspirin prior to admission Patient will be admitted and seen by cardiology as he has ongoing symptoms and recent abnormal stress test are concerning Unfortunately it appears he has an ELY, will try improve kidney function as he would be high risk for further renal failure with contrast Will need to hold home metoprolol and losartan due to bradycardia, ELY, and hypotension Continue Crestor and daily baby aspirin Repeat 2-hour high-sensitivity troponin and obtain TTE Cardiology has been consulted SQ heparin for DVT prophylaxis Heart healthy diet AM CBC, CMP, mag, PT/INR Cardiac cath is postponed until 04/21 due to elevated creatinine. This has been improving. (2) Dizziness: Plan: Patient has been experiencing dizziness with positional changes or exertion over the past week Suspect this is multifactorial including bradycardia, hypotension, and likely dehydration with his ELY as he appears dry on exam No acute EKG changes, electrolytes are stable, continue to monitor on telemetry Holding home metoprolol and losartan for now Will follow TTE ordered on admission Cardiology consult placed Fall precautions (3) Bradycardia: Plan: Patient has been bradycardic with heart rate in the 40s to 50s since arrival Denies a previous history of bradycardia Is normally on 25 mg metoprolol succinate nightly, confirms he did have his dose last night New bradycardia is concerning for possible UT with his ongoing symptoms Will hold metoprolol for now Rest of care per chest pain plan (4) Acute kidney injury superimposed on CKD: Plan: Creatinine is 2.42, review of patient's previous records provided by his phone nicho shows previous creatinine of 1.4 as of October of this year Suspect his ELY is due to poor perfusion from dehydration and possible worsening ejection fraction with new bradycardia and ongoing cardiac symptoms Patient does appear dry on exam, electrolytes are stable Will give 1 L LR at 100 mL an hour x 1 bag for now to avoid volume overload Avoid nephrotoxic agents Follow TTE ordered on admission Follow daily renal function electrolytes Intake output every shift (5) Hypotension: Plan: Noted to be hypotensive on arrival at 94/60 Suspect this is multifactorial including dehydration with ELY, ongoing losartan use, ongoing metoprolol use despite bradycardia BP currently stable on admission at 122/72 Will give 1 L LR x 1 bag on admission for hypotension and ELY Continue to hold metoprolol and losartan for now Rest of care per chest pain plan (6) Hyperlipidemia: Plan: Continue Crestor (7) Rheumatoid arthritis: Plan: Is on weekly methotrexate every Wednesday Holding methotrexate for now, will need to monitor kidney function and renally dose if needed Admission and Anticipated Discharge Date Admission Date: April 19, 2024 Subjective 79 yo male reports no new symptoms. Review of Systems Review of Systems: All systems reviewed & are unremarkable except as noted in HPI & below Physical Exam Physical Exam: General: In no acute distress, stated age, well-nourished, non-toxic appearing HEENT: Normocephalic, atraumatic Chest/Pulm: No respiratory distress, symmetrical chest expansion, clear breath sounds throughout Cardiac: bradycardic rate, regular rhythm, no murmurs noted Abdomen: Negative for ascites and bruising, normoactive bowel sounds, soft, non-tender to palpation throughout Extremities: Radial, dorsalis pedis, and posterior tibial pulses are intact and symmetrical, no edema noted in the BL LE's Psych: No acute distress, calm and cooperative during the exam Results & Data Results & Data Vital Signs (Past 12 Hours) Vital Signs Temp Pulse Pulse Resp BP Pulse Ox O2 Del Method 04/20/24 19:28 36.7 C 81 16 117/76 93 Room Air 04/20/24 14:56 36.6 C 65 14 120/75 97 Room Air 04/20/24 13:47 64 PG Care Time/CCT Total # of Minutes Spent Total Time Spent with Patient: Total time spent is greater than 50% in coordination of care (as documented) at patient's floor/unit and/or counseling patient: Coding Level of Care Code 86190 SUB INP/OBS CARE 2/35MIN Diagnoses Chest pain R07.9 Dizziness R42 Bradycardia R00.1 Acute kidney injury superimposed on CKD N17.9; N18.9 Hypotension I95.9 Hyperlipidemia E78.5 Rheumatoid arthritis M06.9
[2024-04-20] MEDS: SODIUM CHLORIDE 0.9% 1,000 ML IV SCH (23:32)
[2024-04-21 07:48] LABS: Basophils # (auto) 0.04 K/uL (0.00-0.20); Basophils % (auto) 1.1 %; Eosinophils # (auto) 0.09 K/uL (0.00-0.50); Eosinophils % (auto) 2.4 %; Hematocrit (blood only) 36.4 % (42.0-52.0); Hemoglobin 12.7 g/dl (14.0-18.0); Immature Granulocytes # (auto) 0.02 K/uL (0.01-0.20); Immature Granulocytes % (auto) 0.5 %; Lymphocytes # (auto) 0.78 K/uL (1.20-3.40); Lymphocytes % (auto) 20.6 %; Mean Corpuscular Hemoglobin 31.4 pg (25.0-34.0); Mean Corpuscular Hgb Conc 34.9 g/dL (32.0-36.0); Mean Corpuscular Volume 90.1 fL (80.0-100.0); Mean Platelet Volume 10.1 fL (9.4-12.4); Monocytes % (auto) 7.9 %; Neutrophils # (auto) 2.55 K/uL (1.40-6.50); Neutrophils % (auto) 67.5 %; Platelet Count 139 K/uL (130-400); RDW Coefficient of Variation 13.8 % (11.5-14.5); RDW Standard Deviation 44.9 fL (36.4-46.3); Red Blood Count 4.04 M/uL (4.70-6.10); White Blood Count 3.78 K/ul (4.8-10.8)
[2024-04-21 08:15] LABS: Albumin Globulin Ratio 1.8 (0.9-2); Albumin Level 3.7 gm/dl (3.4-5.0); BUN Creatinine Ratio 18.8 (10-20); Bilirubin,Total 0.9 mg/dl (0.2-1.0); Calcium 8.6 mg/dl (8.6-10.3); Creatinine Clr Calc Pharmacy 45.7 ml/min; Est GFR (African American) 47.5 ml/min; Est GFR (Non-African American) 40.9 ml/min; Globulin 2.1 gm/dl (2.5-4.0); Magnesium 1.8 mg/dl (1.7-2.4); Potassium 4.2 mmol/L (3.5-5.1); Total Protein 5.8 gm/dl (6.0-8.3)
--- NOTE | 2024-04-21 13:20 | Pre Anesthesia Assessment ---
Date of Service April 21, 2024 Pre Sedation Assessment Vital Signs Temp Pulse Pulse Resp BP Pulse Ox O2 Del Method 04/21/24 12:00 36.5 C 79 20 127/80 99 Room Air 04/21/24 10:50 36.6 C 66 18 121/75 92 Room Air 04/21/24 08:26 36.4 C L 99 H 18 137/80 98 Room Air 04/21/24 02:40 36.5 C 66 17 102/63 92 Room Air 04/20/24 22:50 36.6 C 75 16 105/72 97 Room Air 04/20/24 21:57 75 04/20/24 19:28 36.7 C 81 16 117/76 93 Room Air 04/20/24 14:56 36.6 C 65 14 120/75 97 Room Air 04/20/24 13:47 64 Cardiovascular + regular rate Respiratory + respiratory effort normal Pre-Sedation Airway Assessment Smoking Status: Never smoker Hx Sleep Apnea: No Hx Difficult Intubation: No Short, Thick Neck: No Thyromental Distance: > or= 3.5 Finger Breadths Oral Cavity: + WNL Mallampati Class: III ASA: ASA3 Procedure Planning Contraindications for Sedation: none Current Medications Reviewed: Yes Notes The planned sedation has been discussed with the patient. Informed Consent was obtained. I have identified the patient, determined the appropriateness of sedation and have assessed the patient immediately prior to the procedure. All medicine(s) and interventions are by my order.
--- NOTE | 2024-04-21 14:57 | Cardiac Catheterization ---
[facility] Data: Vp Of Product Cardiac Status Clinical evaluation leading to the procedure CAD Presenation: Positive Stress Test Diagnostic Physicians Name: Peter Ansari MD Closure Device Recommendations: Medical Therapy and/or Counseling Cardiac Cath Procedure Full Procedure Date April 21, 2024 Pre-Procedure Diagnosis Pre-Procedure Diagnosis: Positive Stress Test AUC Score AUC Score: 7 Post-Procedure Diagnosis Post-Procedure Diagnosis: Normal Coronary Arteries Procedure(s) Performed Procedure(s) Performed: Coronary Angiography, Left Heart Cath and Right Heart Cath Editor Book Peter Ansari MD [employer] Consultant(s) none Estimated Blood Loss Estimated Blood Loss: 10cc Medication(s) Medication(s): Fentanyl, Heparin, Lidocaine 1%, Nicardipine, Nitroglycerin and Versed Summary of Findings Procedure performed: Left heart catheterization, right heart catheterization, selective coronary angiography Staff shoeshiner: Peter Ansari MD Indication: The patient is a 79-year-old gentleman presented with exertional symptoms of dizziness and dyspnea. He had previously undergone outpatient stress testing which was abnormal. Based on his presentation and prior testing was advised to consider coronary angiography and right heart catheterization. Procedure in detail: The patient was informed of the risks benefits and alternatives to the intended procedure, he understood such and wished to proceed. He was taken to the cardiac catheterization suite in a fasting state. Conscious sedation was administered per protocol and the patient was monitored electrocardiographically throughout today's procedure. The right antecubital vein was accessed and used facilitate passage of a balloon tipped catheter for measurement of intrapulmonary and intracardiac pressures. Hemodynamic measurements including cardiac output were also obtained prior to removal of this catheter and sheath. Hemostasis was achieved at the access site using manual pressure. The right wrist area was prepped and draped in usual sterile fashion. This area was anesthetized using subcutaneous administration of a lidocaine solution. The right radial artery was then accessed using Seldinger technique, and a arterial sheath was placed at this site over a guidewire. The sheath was used to facilitate passage of the cardiac catheter for coronary angiography and left heart catheterization. Coronary angiogram was then obtained in multiple orthogonal views prior to removal of the catheter. At the conclusion of the procedure the sheath was removed and hemostasis was achieved at the access site using manual pressure. The patient tolerated procedure well, there were no immediate complications. Equipment used: 5 Spanish tiger 4, 6 Spanish balloon tipped PA catheter, 5 Spanish JL 3.5 Findings: Coronary angiography Left main: Left main coronary was normal in size and caliber and bifurcated normally into the left anterior descending left circumflex arteries. No disease in this vessel Left anterior descending: The left anterior descending was a large vessel which reached the apex. It produced 2 large diagonal branches. There were luminal irregularities throughout its course and perhaps a 30-40% ostial stenosis prior to a somewhat dilated and patulous segment, but no obstructive disease. Left circumflex: Left circumflex was a nondominant vessel. It produced a large 1st obtuse marginal, very small 2nd obtuse marginal and medium-sized 3rd obtuse marginal. Some luminal irregularities but no obstructive disease in this vessel. Right coronary: Right coronary was dominant vessel producing a PLV and a PDA branch. It was somewhat dilated and patulous in its proximal and mid section. There appeared to be a 20% stenosis in its midportion followed by a longer 20% stenosis in the more distal portion. No obstructive disease. Thermodilution cardiac output 6.53 liters/minute with an index of 3.0 Ashish cardiac output 8.8 liters/minute with an index of 4.11 Impression: Right dominant coronary system Mild coronary disease without obstructive lesions Normal intracardiac filling pressures Normal pulmonary pressures Normal cardiac output No evidence of aortic stenosis Hemodynamics Rest Ao:: 90/51 mm of mercury Final Ao: 109/63 mm of mercury LV: 92/0 mm of mercury Left ventricular end-diastolic pressure 2 mm in RA: Mean right atrial pressure Was 0 mm of mercury RV: 26/0 mm of mercury PA: 19/4 mm of mercury PW: 2 mm of mercury Recommendations Recommendations: Medical Therapy and/or Counseling Specimens Specimens: None Radiation Exposure (mGy) 829 Contrast (mls) 30 Procedural Complication(s) None I attest to the content of the Intraoperative Record and any orders documented therein. Any exceptions are noted below. [facility] Card Cath Procedure Codes Cardiac Catheterization Procedure 1: Cardiovascular Cath Procedures: 35413 Coronaries & LHC (+/-LV) & RHC Moderate Sedation Procedure 1: Sedation/Anesthesia: 70044 Mod Sedation by the same physician;Init15 Min Child Age 5 & Up Procedure 2: Sedation/Anesthesia: 78275 Mod Sedation by the same physician; Ea Additio nal15 Minutes PG Care Time/CCT Total # of Minutes Spent Total Time Spent with Patient: Total time spent is greater than 50% in coordination of care (as documented) at patient's floor/unit and/or counseling patient:
--- NOTE | 2024-04-21 14:57 | Post Anesthesia Assessment ---
Date of Service April 21, 2024 Post Sedation Assessment Vital Signs Temp Pulse Pulse Resp BP BP Pulse Ox 04/21/24 13:30 70 12 140/86 98 04/21/24 12:00 36.5 C 79 20 127/80 99 04/21/24 10:50 36.6 C 66 18 121/75 92 04/21/24 08:26 36.4 C L 99 H 18 137/80 98 04/21/24 02:40 36.5 C 66 17 102/63 92 04/20/24 22:50 36.6 C 75 16 105/72 97 04/20/24 21:57 75 04/20/24 19:28 36.7 C 81 16 117/76 93 O2 Del Method 04/21/24 13:30 Room Air 04/21/24 12:00 Room Air 04/21/24 10:50 Room Air 04/21/24 08:26 Room Air 04/21/24 02:40 Room Air 04/20/24 22:50 Room Air 04/20/24 21:57 04/20/24 19:28 Room Air Recovery Score Activity: Moves 4 extremities Respiration: Deep Breath/Cough Circulation: +/-20% PreAnes Value Consciousness: Fully Awake Oxygen Saturation: > 92% On Room Air Discharge Sedation Level of Care: Fast Track Phase II Post Sedation Plan On clinical assessment, the patient appears to have tolerated the sedation without complications. Patient is recovering as anticipated. Patient will continue to be monitored by nursing and may be discharged when sedation discharge criteria are met per below protocol. Upon Completions of procedure up to 15 minutes continue every 5 minute vital signs and the P.A.R. score; then discharge to a Phase I or Fast Track to Phase II per the following guidelines: * Discharge Patient to appropriate Phase II area if PAR is 8 or greater or return to pre- procedure baseline. The post - procedure orders will be as directed. * If PAR score is less than 8 or not return to pre-procedure baseline then patient will follow Phase I monitoring till PAR is reached for Phase II. The Phase I may be done in procedure room or may call to secure a Phase I area. * If naloxone or flumazenil are used for reversal, hold in Phase I for continued monitoring from when last reversal dose was given for a minimum of 60 minutes or longer pending the nurse and/or physician discretion of patient condition before discharge to Phase II. Please call the Sedation Physician to re-evaluate and complete post-note for discharge to Phase II area. Do NOT discharge from procedure sedation or Phase 1 until post- sedation evaluation note is complete by procedure /sedation MD Sedation Discharge Instructions to be given to the patient at discharge to home.
[2024-04-21] MEDS: MIDAZOLAM HCL 1 MG/ML 2ML VIAL ONE (15:06)
[2024-04-21] MEDS: fentaNYL citrate PF 100 MCG/2 ML VIAL ONE (15:06)
[2024-04-21] MEDS: HEPARIN (PORCINE) 1000 UNIT/ML 10 ML (CATH LAB USE ONLY) ONE (15:06)
[2024-04-21] MEDS: IODIXANOL (VISIPAQUE) 320 MG/ML 100ML IV ONE (15:07)
[2024-04-21] MEDS: niCARdipine HCL INJ 2.5 MG/ML 10 ML AMP ONE (15:07)
[2024-04-21] MEDS: NITROGLYCERIN/D5W 100MCG/ML 20ML SYR ONE (15:08)
--- NOTE | 2024-04-21 18:53 | Cardiology Progress Note ---
Date of Service April 21, 2024 Assessment & Plan (1) Dyspnea on exertion: (2) Dizziness: (3) Bradycardia: (4) Psoriatic arthritis: Plan 1. Dyspnea on exertion: Unclear etiology. This is not appear to be related to heart failure. Intracardiac pressures were normal. No obstructive coronary disease. Pulmonary pressures were also normal. Cardiac output was normal. It is possible this could be a primary lung process. Most prominent symptoms still seems to be dizziness. 2. Aortic regurgitation: Moderate. The aortic valve appeared sclerotic. The regurgitation is severe enough to cause symptoms. 3. Dizziness: Unclear etiology. Somewhat exertional in nature. He is not appear to have arm claudication or steal syndrome based on use of his arm. However, evaluation of the vertebral basilar system may be of value. 4. Psoriatic arthritis 5. Jaw claudication 6. Bradycardia: He has a sinus bradycardia. It is possible that he has an element of chronotropic incompetence. However, he appears to be symptomatic with even light exertion and he did undergo exercise testing previously. This is not appear to have been pursued subsequent to that testing. We can monitor him on telemetry and watch his heart rate as he is active. Based on his normal LV systolic function and lack of coronary disease in associated with his presenting bradycardia and hypotension, I would not reinitiate metoprolol at the time of discharge. Admission and Anticipated Discharge Date Admission Date: April 19, 2024 Subjective The patient had no specific complaints this morning. He has not been doing much in the way of physical activity denies dizziness at rest. No shortness of breath. No chest pain. Review of Systems Review of Systems: Per HPI Physical Exam Physical Exam: The patient is alert and oriented. Mood and affect appeared normal. He answered all questions appropriately. HEENT: Pupils are equal and reactive to light and accommodation. Extraocular movements are intact. The sclerae are anicteric. Neuro: Cranial nerves intact Lungs: Clear to auscultation bilaterally. He has good air movement without use of accessory muscles. No rales wheezes or rhonchi. Cardiac: Heart demonstrates a regular rate and rhythm. Normal S1 and S2. Systolic ejection murmur Pulses: The patient has palpable radial pulses bilaterally that are equal in i ntensity Extremities: There was no evidence of hypoperfusion. There is no cyanosis or clubbing. There is no edema. Skin: I did not appreciate any rashes on examination today. Some abrasions on both anterior tibial surfaces Results & Data Vital Signs (Past 12 Hours) Vital Signs Temp Pulse Pulse Resp BP BP Pulse Ox 04/21/24 18:12 65 16 04/21/24 17:12 67 04/21/24 16:12 62 04/21/24 16:00 04/21/24 15:42 36.8 C 65 16 142/62 H 98 04/21/24 15:30 67 12 116/87 94 04/21/24 15:15 65 12 134/84 96 04/21/24 13:30 70 12 140/86 98 04/21/24 12:00 36.5 C 79 20 127/80 99 04/21/24 10:50 36.6 C 66 18 121/75 92 04/21/24 08:26 36.4 C L 99 H 18 137/80 98 O2 Del Method O2 Del Method 04/21/24 18:12 04/21/24 17:12 04/21/24 16:12 Room Air 04/21/24 16:00 Room Air 04/21/24 15:42 Room Air 04/21/24 15:30 Room Air 04/21/24 15:15 Room Air 04/21/24 13:30 Room Air 04/21/24 12:00 Room Air 04/21/24 10:50 Room Air 04/21/24 08:26 Room Air Laboratory Results Abnormal Lab Results 04/21/24 07:25 WBC 3.78 L RBC 4.04 L Hgb 12.7 L Hct 36.4 L MCV 90.1 MCH 31.4 MCHC 34.9 RDW Std Deviation 44.9 RDW Coeff of Sepideh 13.8 Plt Count 139 MPV 10.1 Immature Gran % (Auto) 0.5 Neut % (Auto) 67.5 Lymph % (Auto) 20.6 Dillon % (Auto) 7.9 Eos % (Auto) 2.4 Baso % (Auto) 1.1 Neut # (Auto) 2.55 Lymph # (Auto) 0.78 L Dillon # (Auto) 0.30 Eos # (Auto) 0.09 Baso # (Auto) 0.04 Immature Gran # (Auto) 0.02 Sodium 139 Potassium 4.2 Chloride 109 H Carbon Dioxide 23 Anion Gap 7 BUN 30 H Creatinine 1.60 H Est Cr Clr Drug Dosing 45.7 Est GFR ( Amer) 47.5 Est GFR (Non-Af Amer) 40.9 BUN/Creatinine Ratio 18.8 Glucose 77 Calcium 8.6 Magnesium 1.8 Total Bilirubin 0.9 AST 15 ALT 8 Alkaline Phosphatase 55 Total Protein 5.8 L Albumin 3.7 Globulin 2.1 L Albumin/Globulin Ratio 1.8 Diagnostic Findings Cardiac catheterization performed today did not reveal any obstructive coronary disease. Normal left ventricular and pulmonary pressures. PG Care Time/CCT Total # of Minutes Spent Total Time Spent with Patient: Total time spent is greater than 50% in coordination of care (as documented) at patient's floor/unit and/or counseling patient: Coding Level of Care Code 69659 SUB INP/OBS CARE 2/35MIN Diagnoses Dyspnea on exertion R06.09 Dizziness R42 Bradycardia R00.1 Psoriatic arthritis L40.50
--- NOTE | 2024-04-21 23:59 | Hospitalist Progress Note ---
Date of Service April 21, 2024 Assessment & Plan (1) Chest pain: Plan: Admit to med/tele on pulse oximetry Currently asymptomatic with heart rate in the 40s but otherwise stable at rest Presented to the ED today due to ongoing dyspnea on exertion/left-sided chest pain, lightheadedness/dizziness, neck pain, Patient is from [facility] and had an abnormal stress test approximately 2 months ago, is supposed to undergo cardiac catheterization but this has not yet been scheduled Patient noted to be bradycardic on arrival with heart rate in the 40s to 50s, initially was hypotensive with BP of 94/60 Initial high-sensitivity troponin is within normal limits, no acute ST segment or T wave changes on EKG Was given full dose aspirin prior to admission Patient will be admitted and seen by cardiology as he has ongoing symptoms and recent abnormal stress test are concerning Unfortunately it appears he has an ELY, will try improve kidney function as he would be high risk for further renal failure with contrast Will need to hold home metoprolol and losartan due to bradycardia, ELY, and hypotension Continue Crestor and daily baby aspirin Repeat 2-hour high-sensitivity troponin and obtain TTE Cardiology has been consulted SQ heparin for DVT prophylaxis Heart healthy diet AM CBC, CMP, mag, PT/INR Cardiac cath is postponed until 04/21 due to elevated creatinine. This has been improving. On 04/21 Cardiac cath was completed but negative. Given bradycardia, will continue to hold metoprolol. Blood pressure has been at goal, will hold losartan. These may also be playing a role with his dizziness. (2) Dizziness: Plan: Patient has been experiencing dizziness with positional changes or exertion over the past week Suspect this is multifactorial including bradycardia, hypotension, and likely dehydration with his ELY as he appears dry on exam No acute EKG changes, electrolytes are stable, continue to monitor on telemetry Holding home metoprolol and losartan for now Will follow TTE ordered on admission Cardiology consult placed Fall precautions will obtain a carotid ultrasound (3) Bradycardia: Plan: Patient has been bradycardic with heart rate in the 40s to 50s since arrival Denies a previous history of bradycardia Is normally on 25 mg metoprolol succinate nightly, confirms he did have his dose last night New bradycardia is concerning for possible [place] with his ongoing symptoms Will hold metoprolol for now Rest of care per chest pain plan (4) Acute kidney injury superimposed on CKD: Plan: Creatinine is 2.42, review of patient's previous records provided by his phone nicho shows previous creatinine of 1.4 as of October of this year Suspect his ELY is due to poor perfusion from dehydration and possible worsening ejection fraction with new bradycardia and ongoing cardiac symptoms Patient does appear dry on exam, electrolytes are stable Will give 1 L LR at 100 mL an hour x 1 bag for now to avoid volume overload Avoid nephrotoxic agents Follow TTE ordered on admission Follow daily renal function electrolytes Intake output every shift (5) Hypotension: Plan: Noted to be hypotensive on arrival at 94/60 Suspect this is multifactorial including dehydration with ELY, ongoing losartan use, ongoing metoprolol use despite bradycardia BP currently stable on admission at 122/72 Will give 1 L LR x 1 bag on admission for hypotension and ELY Continue to hold metoprolol and losartan for now Rest of care per chest pain plan (6) Hyperlipidemia: Plan: Continue Crestor (7) Rheumatoid arthritis: Plan: Is on weekly methotrexate every Wednesday Holding methotrexate for now, will need to monitor kidney function and renally dose if needed Admission and Anticipated Discharge Date Admission Date: April 19, 2024 Subjective Patient reports no new symptoms. Review of Systems Review of Systems: All systems reviewed & are unremarkable except as noted in HPI & below Physical Exam Physical Exam: General: In no acute distress, stated age, well-nourished, non-toxic appearing HEENT: Normocephalic, atraumatic Chest/Pulm: No respiratory distress, symmetrical chest expansion, clear breath sounds throughout Cardiac: bradycardic rate, regular rhythm, no murmurs noted Abdomen: Negative for ascites and bruising, normoactive bowel sounds, soft, non-tender to palpation throughout Extremities: Radial, dorsalis pedis, and posterior tibial pulses are intact and symmetrical, no edema noted in the BL LE's Psych: No acute distress, calm and cooperative during the exam Results & Data Results & Data Vital Signs (Past 12 Hours) Vital Signs Temp Pulse Pulse Resp BP BP Pulse Ox 04/21/24 23:27 73 04/21/24 22:40 64 16 137/87 98 04/21/24 19:55 04/21/24 19:12 36.5 C 65 19 110/72 96 04/21/24 18:12 65 16 04/21/24 17:12 67 04/21/24 16:12 62 04/21/24 16:00 04/21/24 15:42 36.8 C 65 16 142/62 H 98 04/21/24 15:30 67 12 116/87 94 04/21/24 15:15 65 12 134/84 96 04/21/24 13:30 70 12 140/86 98 04/21/24 12:00 36.5 C 79 20 127/80 99 O2 Del Method O2 Del Method 04/21/24 23:27 04/21/24 22:40 Room Air 04/21/24 19:55 Room Air 04/21/24 19:12 Room Air 04/21/24 18:12 04/21/24 17:12 04/21/24 16:12 Room Air 04/21/24 16:00 Room Air 04/21/24 15:42 Room Air 04/21/24 15:30 Room Air 04/21/24 15:15 Room Air 04/21/24 13:30 Room Air 04/21/24 12:00 Room Air PG Care Time/CCT Total # of Minutes Spent Total Time Spent with Patient: Total time spent is greater than 50% in coordination of care (as documented) at patient's floor/unit and/or counseling patient: Coding Level of Care Code 90436 SUB INP/OBS CARE 2/35MIN Diagnoses Chest pain R07.9 Dizziness R42 Bradycardia R00.1 Acute kidney injury superimposed on CKD N17.9; N18.9 Hypotension I95.9 Hyperlipidemia E78.5 Rheumatoid arthritis M06.9
--- NOTE | 2024-04-22 06:08 | Ultrasound Report ---
ULTRASOUND OF THE CAROTID ARTERIES CLINICAL HISTORY: Neck pain. COMPARISON STUDY: No priors TECHNIQUE: Real-time, grayscale, and color Doppler sonography of the carotid arteries is performed. I mages are reviewed in the transverse and longitudinal planes. FINDINGS: The carotid arteries are patent bilaterally and demonstrate antegrade flow. There is no significant a therosclerotic plaque identified. Normal doppler arterial waveforms are seen throughout. Velocity corrine surements are listed below. Common carotid peak systolic velocity (cm/sec): RIGHT: 80 LEFT: 82 ICA proximal peak systolic velocity (cm/sec): RIGHT: 45 LEFT: 61 ICA mid peak systolic velocity (cm/sec): RIGHT: 73 LEFT: 60 ICA distal peak systolic velocity (cm/sec): RIGHT: 57 LEFT: 57 ICA/CC peak systolic ratio: RIGHT: 0.9 LEFT: 0.7 Antegrade flow was shown in the vertebral arteries. The external carotid arteries are patent. IMPRESSION: 1. There is no sonographic evidence of hemodynamically significant stenosis in the right or left [place] tid arterial system. 2. Antegrade flow is shown in the vertebral arteries. ACT 112: Negative or not required by law. Electronically signed by: Momo Sherman M.D. 04/22/2024 6:07 AM
[2024-04-22 06:24] LABS: Basophils # (auto) 0.03 K/uL (0.00-0.20); Basophils % (auto) 0.9 %; Eosinophils # (auto) 0.08 K/uL (0.00-0.50); Eosinophils % (auto) 2.4 %; Hematocrit (blood only) 37.4 % (42.0-52.0); Hemoglobin 13.2 g/dl (14.0-18.0); Lymphocytes # (auto) 0.73 K/uL (1.20-3.40); Lymphocytes % (auto) 21.7 %; Mean Corpuscular Hemoglobin 31.5 pg (25.0-34.0); Mean Corpuscular Hgb Conc 35.3 g/dL (32.0-36.0); Mean Corpuscular Volume 89.3 fL (80.0-100.0); Mean Platelet Volume 10.2 fL (9.4-12.4); Monocytes # (auto) 0.27 K/uL (0.11-0.59); Neutrophils # (auto) 2.25 K/uL (1.40-6.50); Platelet Count 157 K/uL (130-400); RDW Coefficient of Variation 13.8 % (11.5-14.5); RDW Standard Deviation 44.7 fL (36.4-46.3); Red Blood Count 4.19 M/uL (4.70-6.10); White Blood Count 3.36 K/ul (4.8-10.8)
[2024-04-22 06:31] LABS: Albumin Globulin Ratio 1.8 (0.9-2); Albumin Level 3.7 gm/dl (3.4-5.0); BUN Creatinine Ratio 15.7 (10-20); Bilirubin,Total 0.8 mg/dl (0.2-1.0); Calcium 8.6 mg/dl (8.6-10.3); Creatinine Clr Calc Pharmacy 47.7 ml/min; Est GFR (African American) 50.1 ml/min; Est GFR (Non-African American) 43.2 ml/min; Globulin 2.1 gm/dl (2.5-4.0); Magnesium 1.9 mg/dl (1.7-2.4); Potassium 4.2 mmol/L (3.5-5.1); Total Protein 5.8 gm/dl (6.0-8.3)
--- NOTE | 2024-04-22 15:46 | Discharge Summary ---
Date of Service April 22, 2024 Admission HPI Per Admitting Provider Sudarshan is a 79-year-old male who is currently visiting family in [place] (lives in [facility]), with a past medical history significant for hyperlipidemia, hypertension, CKD, rheumatoid arthritis (On weekly methotrexate), Heart failure with preserved ejection fraction, and BPH who presented to the [facility] ED on 04/19/2024 due to progressive generalized weakness, brain fog, dyspnea on exertion, chest pain, and dizziness. On arrival to the ED he was noted to be bradycardic with heart rate in the 40s to 50s, initial BP of 103/64, and otherwise stable. Labs were significant for creatinine of 2.42 (unsure baseline), BUN of 46, high-sensitivity troponin of 2.7, and full respiratory Bio[employer] negative. CT of the head and brain without contrast, bilateral lower extremity venous Doppler, and chest x-ray were read as negative for acute findings. EKG shows sinus bradycardia without ST segment or T wave changes. The patient reported to the ED staff that he recently had an abnormal stress test and is supposed to undergo cardiac catheterization. This has not yet been completed as there have been delays due to insurance issues. Prior to admission the patient was given 324 mg aspirin. Patient was sitting in bed in no acute distress at the time of exam. He states that he had an abnormal stress test approximately 2 months ago as he has been having ongoing dyspnea on exertion, sharp left-sided chest pain with exertion, lightheadedness/dizziness with positional changes or exertion, and bilateral neck pain with exertion. He has not had a cardiac catheterization due to insurance conflicts. He arrived in [place] on 04/14/2024 to help his daughter with home innervations. Since arriving he has had progression of his symptoms to the point where he is unable to walk up the steps without significant dyspnea on exertion, chest pain, and dizziness. Denies recent tobacco use and does not drink alcohol consistently. Denies a previous history of cardiac procedures. He is currently on a taper of doxycycline for bilateral bacterial eye infection. He was able to provide me with previous information from his medical record Showing that his previous creatinine in October of this year was 1.4. He was able provide the results of his last stress test which showed wall motion abnormalities of the inferior wall and left ventricular ejection fraction of 58%. He denies recurrence of symptoms since arrival to the ED. I explained that we will need him to be evaluated by cardiology and see if we can improve his renal function with light IV fluids as IV contrast with card iac sedation today would be high risk for worsening renal function. We discussed CODE STATUS, he clearly explained that in the event of cardiac arrest he would not want CPR. He would be okay with cardiac defibrillation in the event of arrhythmia and would be okay with a trial of intubation in the event of respiratory failure. His is his primary decision-maker if he cannot make decisions himself. The patient added that he has been having ongoing issues with difficulty swallowing solid foods, he states has been occurring for multiple years. He has not been formally evaluated for this. Home Pneumatic Tube Fitter: Dayanna El Home Art Appraiser: Dr. Mouna Holder, [place], [place] Principal Diagnosis chest pain Discharge Exam General: In no acute distress, stated age, well-nourished, non-toxic appearing HEENT: Normocephalic, atraumatic Chest/Pulm: No respiratory distress, symmetrical chest expansion, clear breath sounds throughout Cardiac: bradycardic rate, regular rhythm, no murmurs noted Abdomen: Negative for ascites and bruising, normoactive bowel sounds, soft, non-tender to palpation throughout Extremities: Radial, dorsalis pedis, and posterior tibial pulses are intact and symmetrical, no edema noted in the BL LE's Psych: No acute distress, calm and cooperative during the exam Discharge Data Allergies Allergy/AdvReac Type Severity Reaction Status Date / Time No Known Allergies Allergy Unverified 04/19/24 12:54 Consultations 04/19/24 14:15 ED Decision to Admit Stat 04/19/24 14:32 Consult Cardiology Routine Procedures Performed Operation Date: 04/21/24 11:00 Actual Procedures p Cineradiography w/Routine Exam - Peter Ansari MD p Cath, Right and Left Heart(Bilateral) - Peter Ansari MD Ordered Studies 04/19/24 11:27 US venous doppler LE BI Stat 04/19/24 11:28 CT head/brain wo con Stat 04/21/24 08:47 CL Cath Imgs for PACS use only Routine 04/21/24 16:50 Carotid duplex [US carotid doppler BI] Routine Hospital Course (1) Chest pain: Admit to med/tele on pulse oximetry Currently asymptomatic with heart rate in the 40s but otherwise stable at rest Presented to the ED today due to ongoing dyspnea on exertion/left-sided chest pain, lightheadedness/dizziness, neck pain, Patient is from [facility] and had an abnormal stress test approximately 2 months ago, is supposed to undergo cardiac catheterization but this has not yet been scheduled Patient noted to be bradycardic on arrival with heart rate in the 40s to 50s, initially was hypotensive with BP of 94/60 Initial high-sensitivity troponin is within normal limits, no acute ST segment or T wave changes on EKG Continue Crestor and daily baby aspirin Cardiology has been consulted On 04/22 Cardiac cath was completed but negative. Given bradycardia, will continue to hold metoprolol. Blood pressure has been at goal, will hold losartan. These may also be playing a role with his dizziness. (2) Dizziness: Patient has been experiencing dizziness with positional changes or exertion over the past week Suspect this is multifactorial including bradycardia, hypotension, and likely dehydration with his ELY as he appears dry on exam No acute EKG changes, electrolytes are stable, continue to monitor on telemetry Holding home metoprolol and losartan for now will obtain a carotid ultrasound: his was negaive. (3) Bradycardia: Patient has been bradycardic with heart rate in the 40s to 50s since arrival Denies a previous history of bradycardia Is normally on 25 mg metoprolol succinate nightly, confirms he did have his dose last night New bradycardia is concerning for possible [place] with his ongoing symptoms Will hold metoprolol for now Rest of care per chest pain plan (4) Acute kidney injury superimposed on CKD: Creatinine is 2.42, review of patient's previous records provided by his phone nicho shows previous creatinine of 1.4 as of October of this year Suspect his ELY is due to poor perfusion from dehydration and possible worsening ejection fraction with new bradycardia and ongoing cardiac symptoms Patient does appear dry on exam, electrolytes are stable Will give 1 L LR at 100 mL an hour x 1 bag for now to avoid volume overload Avoided nephrotoxic agents (5) Hypotension: Noted to be hypotensive on arrival at 94/60 Suspect this is multifactorial including dehydration with ELY, ongoing losartan use, ongoing metoprolol use despite bradycardia BP currently stable (6) Hyperlipidemia: Continue Crestor (7) Rheumatoid arthritis: Is on weekly methotrexate every Wednesday Total Time Total Time Spent Total Time Spent (In Minutes): 32 Discharge Plan Discharge Items Patient Disposition: Home - Self-Care Reason For Visit: CHEST PAIN, RANKIN, DIZZINESS, ELY Discharge Diagnosis: chest pain Activity: Resume your previous activity Non-emergency contact: Primary Care Provider Call non-emergency contact if: you have any medication questions Follow-up/Referrals: Fabby Ozuna MD [Primary Care Provider] - Diet: Heart Healthy Diet Texture: Easy to Chew Addtl Attending Provider Instructions: Recommend followup with PCP in 1-2 weeks. Recommend seeing an Ears, Nose and throat doctor to discuss your difficulty swallowing. Pending Studies at Discharge: No Stand-Alone Forms: My Test.tv, Smoking Cessation Medications and DC Order Prescriptions: Continued tamsulosin 0.4 mg capsule 0.4 mg PO HS folic acid 1 mg tablet 1 mg PO DAILY doxycycline hyclate 100 mg tablet 100 mg PO HS finasteride 5 mg tablet 5 mg PO DAILY rosuvastatin 5 mg tablet 5 mg PO DAILY duloxetine 30 mg capsule,delayed release(DR/EC) 90 mg PO DAILY aspirin 81 mg Tablet 81 mg PO HS methotrexate sodium 2.5 mg tablet 15 mg PO WK Rx Instructions: Every Wednesday Discontinued losartan 50 mg tablet 50 mg PO HS metoprolol succinate 25 mg tablet extended release 24 hr 25 mg PO HS Discharge Orders: Discharge Order (Routine); Ordered 04/22/24 Ordered By: Grant Short Admission Data Admit Date/Time: 04/19/24 14:31 Attending Provider: Grant Short Admit Provider: Lenny Zee Primary Care Provider: Fabby Ozuna Other Providers: Lenny Zee; Peter Ansari Other Interventions: Discharge Summary Assessment (RN) Last Done: 04/22/24 11:25 Coding Level of Care Code 11089 INP/OBS DISCH >30 MIN Diagnoses Chest pain R07.9 Dizziness R42 Bradycardia R00.1 Acute kidney injury superimposed on CKD N17.9; N18.9 Hypotension I95.9 Hyperlipidemia E78.5 Rheumatoid arthritis M06.9
[2024-04-24 10:48] LABS: iSTAT Arterial Blood Gas HCO3 18 meg/L (19-24); iSTAT Arterial Blood Gas pCO2 30 mmHg (35-46); iSTAT Arterial Blood Gas pH 7.38 (7.35-7.45); iSTAT Arterial Blood Gas pO2 64 mmHg (80-95); iSTAT Carbon Dioxide 19 mmol/L (24-31); iSTAT Hematocrit 33 % (42-52); iSTAT Hemoglobin 11.2 g/dl (14.0-18.0); iSTAT Potassium 3.9 mmol/L (3.3-5.0); iSTAT Sodium 140 mmol/L (135-144)
[2024-04-24 10:49] LABS: iSTAT Arterial Blood Gas HCO3 20 meg/L (19-24); iSTAT Arterial Blood Gas pCO2 35 mmHg (35-46); iSTAT Arterial Blood Gas pH 7.36 (7.35-7.45); iSTAT Arterial Blood Gas pO2 38 mmHg (80-95); iSTAT Carbon Dioxide 21 mmol/L (24-31); iSTAT Hematocrit 36 % (42-52); iSTAT Hemoglobin 12.2 g/dl (14.0-18.0); iSTAT Potassium 4.1 mmol/L (3.3-5.0); iSTAT Sodium 140 mmol/L (135-144)
== END 2024-04-22 12:24 | disposition home or self-care (01) | DRG 287 ==
LOC: ED 10:56 → SUATTDRO 14:31 → EDINP 14:31 → 2N 16:01 → 4W 04-21 12:11
DX: I50.30 Unspecified diastolic (congestive) heart failure; R06.09 Other forms of dyspnea; R07.9 Chest pain, unspecified; Z79.631 Long term (current) use of antimetabolite agent; N17.9 Acute kidney failure, unspecified; Z87.891 Personal history of nicotine dependence; E78.5 Hyperlipidemia, unspecified; I35.1 Nonrheumatic aortic (valve) insufficiency; T44.7X5A Adverse effect of beta-adrenoreceptor antagonists, initial encounter; M54.2 Cervicalgia; Z79.899 Other long term (current) drug therapy; I95.89 Other hypotension; R42 Dizziness and giddiness; E86.0 Dehydration; Z79.82 Long term (current) use of aspirin; R60.0 Localized edema; M06.9 Rheumatoid arthritis, unspecified; R94.31 Abnormal electrocardiogram [ECG] [EKG]; N18.9 Chronic kidney disease, unspecified; I13.0 Hypertensive heart and chronic kidney disease with heart failure and stage 1 through stage 4 chronic kidney disease, or unspecified chronic kidney disease; T46.4X5A Adverse effect of angiotensin-converting-enzyme inhibitors, initial encounter; I95.2 Hypotension due to drugs; R00.1 Bradycardia, unspecified; N40.0 Benign prostatic hyperplasia without lower urinary tract symptoms